=== PATIENT | male | born 1965 | race Caucasian/White ===

== ENCOUNTER 2022-04-16 14:53 | Inpatient (IN) | payer OTHER ==
[2022-04-16 17:24] VITALS: BMI 29.0
[2022-04-16] MEDS ORDERED: MAG HYDROX/AL HYDROX/SIMETH 30 ML UNIT-DOSE CUP PO PRN (18:27)
[2022-04-16] MEDS ORDERED: BENZOCAINE/MENTHOL (CHLORASEPTIC ) LOZENGE MM PRN (18:27)
[2022-04-16] MEDS ORDERED: MAGNESIUM HYDROX 2400MG/30ML ORAL SUSPENSION 30 ML CUP PO PRN (18:27)
[2022-04-16] MEDS ORDERED: MAGNESIUM CITRATE 300 ML BOTTLE PO PRN (18:27)
[2022-04-16] MEDS ORDERED: NICOTINE 10 MG CARTRIDGE (INHALER) IH PRN (18:27)
[2022-04-16] MEDS ORDERED: BISMUTH SUBSALICYLATE 524 MG/30 ML PO PRN (18:27)
[2022-04-16] MEDS ORDERED: DICYCLOMINE HCL 10 MG CAPSULE PO PRN (18:27)
[2022-04-16] MEDS ORDERED: cloNIDine HCL 0.1 MG TABLET PO PRN (18:27)
[2022-04-16] MEDS ORDERED: ONDANSETRON *ODT* 4 MG TABLET SL PRN (18:27)
[2022-04-16] MEDS ORDERED: LOPERAMIDE HCL 2 MG CAPSULE PO PRN (18:27)
[2022-04-16] MEDS ORDERED: methaDONE HCL 10 MG TABLET (FOR DETOX USE ONLY) PO ONE (20:15)
[2022-04-16] MEDS: PRENATAL VITAMINS W/ FOLIC ACID TABLET (FP) PO SCH (20:26)
[2022-04-16] MEDS: IBUPROFEN 600 MG TABLET (FP) PO PRN (20:26)
[2022-04-16] MEDS: chlordiazePOXIDE HCL 25 MG CAPSULE PO SCH ×2 (20:28→22:14)
[2022-04-16] MEDS ORDERED: QUEtiapine FUMARATE 50 MG TABLET PO ONE (22:00)
[2022-04-16] MEDS: MELATONIN 5 MG TABLETS PO SCH (22:13)
[2022-04-16] MEDS: hydrOXYzine PAMOATE 25 MG CAPSULE (FP) PO SCH (22:13)
[2022-04-16] MEDS: THIAMINE HCL 100 MG TABLET (FP) PO SCH (22:13)
[2022-04-17] MEDS: chlordiazePOXIDE HCL 25 MG CAPSULE PO SCH ×4 (05:37→22:28)
[2022-04-17] MEDS: hydrOXYzine PAMOATE 25 MG CAPSULE (FP) PO SCH ×5 (05:37→22:29)
[2022-04-17] MEDS ORDERED: methaDONE HCL 10 MG TABLET (FOR DETOX USE ONLY) ONE (09:20)
[2022-04-17] MEDS: PRENATAL VITAMINS W/ FOLIC ACID TABLET (FP) PO SCH (10:42)
[2022-04-17] MEDS: LISINOPRIL 20 MG TABLET PO SCH (10:43)
[2022-04-17] MEDS: amLODIPine BESYLATE 10 MG TABLET (FP) PO SCH (10:43)
[2022-04-17] MEDS: IBUPROFEN 600 MG TABLET (FP) PO PRN ×2 (10:45→18:17)
[2022-04-17 10:48] LABS: HEMATOCRIT 39.1 % (35.4-49); HEMOGLOBIN 13.3 GM/dL (11.7-16.9); MCH 30.4 pg (25.7-33.7); MEAN CELL VOLUME 89.5 fl (80-96); MEAN PLT VOLUME 9.2 fl (7.5-11.1); PLATELET COUNT 214 10^3/uL (134-434); RBC 4.37 M/mm3 (4.00-5.60); RDW 14.1 % (11.9-15.9); WHITE BLOOD COUNT 4.3 K/mm3 (4.0-10.0)
[2022-04-17 11:40] LABS: CALCIUM 8.7 mg/dL (8.5-10.1)
[2022-04-17 11:41] LABS: ALBUMIN 3.2 g/dl (3.4-5.0); BLOOD UREA NITROGEN 11.8 mg/dL (7-18)
[2022-04-17 11:44] LABS: CREATININE 0.7 mg/dL (0.55-1.3)
[2022-04-17 11:45] LABS: BILIRUBIN,TOTAL 0.6 mg/dL (0.2-1); TOT PROT 6.7 g/dl (6.4-8.2)
[2022-04-17] MEDS: METHOCARBAMOL 500 MG TABLET PO PRN (14:38)
[2022-04-17] MEDS: QUEtiapine FUMARATE 50 MG TABLET PO SCH (22:28)
[2022-04-17] MEDS: THIAMINE HCL 100 MG TABLET (FP) PO SCH (22:28)
[2022-04-17] MEDS: GABAPENTIN 300 MG CAPSULE PO SCH (22:28)
[2022-04-17] MEDS: MELATONIN 5 MG TABLETS PO SCH (22:28)
[2022-04-18] MEDS: hydrOXYzine PAMOATE 25 MG CAPSULE (FP) PO SCH ×5 (05:45→23:12)
[2022-04-18] MEDS: chlordiazePOXIDE HCL 25 MG CAPSULE PO SCH ×4 (05:45→23:14)
[2022-04-18] MEDS: GABAPENTIN 300 MG CAPSULE PO SCH ×3 (05:45→23:12)
[2022-04-18] MEDS ORDERED: methaDONE HCL 10 MG TABLET (FOR DETOX USE ONLY) PO ONE (10:00)
[2022-04-18] MEDS: amLODIPine BESYLATE 10 MG TABLET (FP) PO SCH (10:21)
[2022-04-18] MEDS: LISINOPRIL 20 MG TABLET PO SCH (10:21)
[2022-04-18] MEDS: PRENATAL VITAMINS W/ FOLIC ACID TABLET (FP) PO SCH (10:22)
[2022-04-18] MEDS: IBUPROFEN 400 MG TABLET (FP) PO PRN ×2 (10:22→23:13)
[2022-04-18] MEDS: METHOCARBAMOL 500 MG TABLET PO PRN ×2 (13:54→23:15)
[2022-04-18] MEDS: chlordiazePOXIDE HCL 25 MG CAPSULE PO PRN ×2 (13:55→18:45)
[2022-04-18] MEDS: IBUPROFEN 600 MG TABLET (FP) PO PRN (18:46)
[2022-04-18] MEDS: MELATONIN 5 MG TABLETS PO SCH (23:12)
[2022-04-18] MEDS: THIAMINE HCL 100 MG TABLET (FP) PO SCH (23:12)
[2022-04-18] MEDS: QUEtiapine FUMARATE 50 MG TABLET PO SCH (23:12)
[2022-04-19] MEDS ORDERED: chlordiazePOXIDE HCL 10 MG CAPSULE PO PRN
[2022-04-19] MEDS: chlordiazePOXIDE HCL 10 MG CAPSULE PO SCH ×4 (07:46→22:40)
[2022-04-19] MEDS: hydrOXYzine PAMOATE 25 MG CAPSULE (FP) PO SCH ×5 (07:46→22:39)
[2022-04-19] MEDS: IBUPROFEN 400 MG TABLET (FP) PO PRN (07:47)
[2022-04-19] MEDS: GABAPENTIN 300 MG CAPSULE PO SCH ×3 (07:47→22:39)
[2022-04-19] MEDS: LISINOPRIL 20 MG TABLET PO SCH (10:13)
[2022-04-19] MEDS: METHOCARBAMOL 500 MG TABLET PO PRN ×2 (10:14→22:43)
[2022-04-19] MEDS: amLODIPine BESYLATE 10 MG TABLET (FP) PO SCH (10:14)
[2022-04-19] MEDS: PRENATAL VITAMINS W/ FOLIC ACID TABLET (FP) PO SCH (10:42)
[2022-04-19] MEDS: IBUPROFEN 600 MG TABLET (FP) PO PRN ×2 (18:05→22:43)
[2022-04-19] MEDS: MELATONIN 5 MG TABLETS PO SCH (22:38)
[2022-04-19] MEDS: THIAMINE HCL 100 MG TABLET (FP) PO SCH (22:39)
[2022-04-19] MEDS: QUEtiapine FUMARATE 50 MG TABLET PO SCH (22:40)
[2022-04-20] MEDS: GABAPENTIN 300 MG CAPSULE PO SCH ×3 (06:11→22:37)
[2022-04-20] MEDS: hydrOXYzine PAMOATE 25 MG CAPSULE (FP) PO SCH ×5 (06:11→22:37)
[2022-04-20] MEDS: chlordiazePOXIDE HCL 10 MG CAPSULE PO SCH ×2 (06:12→18:08)
[2022-04-20] MEDS ORDERED: methaDONE HCL 10 MG TABLET (FOR DETOX USE ONLY) PO ONE (10:00)
[2022-04-20] MEDS: LISINOPRIL 20 MG TABLET PO SCH (10:46)
[2022-04-20] MEDS: amLODIPine BESYLATE 10 MG TABLET (FP) PO SCH (10:46)
[2022-04-20] MEDS: PRENATAL VITAMINS W/ FOLIC ACID TABLET (FP) PO SCH (10:46)
[2022-04-20] MEDS: IBUPROFEN 600 MG TABLET (FP) PO PRN ×2 (10:47→18:11)
[2022-04-20] MEDS: METHOCARBAMOL 500 MG TABLET PO PRN (18:12)
[2022-04-20] MEDS: MELATONIN 5 MG TABLETS PO SCH (22:37)
[2022-04-20] MEDS: THIAMINE HCL 100 MG TABLET (FP) PO SCH (22:37)
[2022-04-20] MEDS: QUEtiapine FUMARATE 50 MG TABLET PO SCH (22:38)
[2022-04-20] MEDS: IBUPROFEN 400 MG TABLET (FP) PO PRN (22:38)
[2022-04-21] MEDS ORDERED: chlordiazePOXIDE HCL 10 MG CAPSULE PO ONE (05:00)
[2022-04-21] MEDS: GABAPENTIN 300 MG CAPSULE PO SCH (06:13)
[2022-04-21] MEDS: hydrOXYzine PAMOATE 25 MG CAPSULE (FP) PO SCH (06:13)
[2022-04-21] MEDS: IBUPROFEN 600 MG TABLET (FP) PO PRN (06:15)
[2022-04-21 09:13] VITALS: BP 111/69; PULSE 73; RESP 16; TEMP 97.5
== END 2022-04-21 10:16 | disposition home or self-care (01) | DRG 773 ==
LOC: YASAS 14:53 → Y3N 19:10
PROVIDERS: ADMIT Allergy & Immunology; ATTEND Surgery
PROC: HZ2ZZZZ Detoxification Services for Substance Abuse Treatment (ICD-10-PCS; principal; 2022-04-16)
DX: F11.23 Opioid dependence with withdrawal (principal); F10.230 Alcohol dependence with withdrawal, uncomplicated; F17.210 Nicotine dependence, cigarettes, uncomplicated; F41.9 Anxiety disorder, unspecified; F32.A Depression, unspecified; I10 Essential (primary) hypertension; G47.00 Insomnia, unspecified; B18.2 Chronic viral hepatitis C; Z91.013 Allergy to seafood; Z86.59 Personal history of other mental and behavioral disorders; Z91.51 Personal history of suicidal behavior; Z56.0 Unemployment, unspecified; Z59.00 Homelessness unspecified
CPT/HCPCS: 36415; 80053; 85027; 86780; C9803-CS; U0003; U0005